=== PATIENT | male | born 1950 | race Caucasian/White ===

== ENCOUNTER → 2017-03-29 | Outpatient (CLI) | payer OTHER ==
[~2017-03-29] MED LIST: ALLOPURINOL PO; ASPI81TA28 PO; ATOR-24 PO; BMX1 PO; CARV25TA2 PO; CHOL20007 PO; CYAN100T6 PO; FAMO20TA11 PO; HYDR-5688 PO; HYDR200T5 PO; LISI-725 PO; METH2.5T PO; ORENCIA INJ; POTA10CA28 PO; SULF500T36 PO; VITAMIN B12 PO
--- NOTE | 2017-03-29 16:39 | DIAGNOSTIC IMAGING REPORT ---
LEFT ANKLE CT CT DOSE: 170.04 mGy.cm HISTORY: LT ANKLE FRACTURE TECHNIQUE: Multiaxial CT images of the left ankle were performed and reformatted in the sagittal and coronal plane without the use of contrast. A dose lowering technique was utilized adhering to the principles of ALARA. COMPARISON: Left ankle 03/29/2017. FINDINGS: Overlying cast. Oblique slightly comminuted fracture within the distal metadiaphysis of the left fibula. This demonstrates up to 6 mm of lateral and 6 mm of anterior displacement. There is also a oblique fracture within the medial malleolus which demonstrates up to 4 mm of medial displacement. This results in mild widening of the ankle mortise. There is also a fracture at the anterolateral aspect of the distal tibia which extends to the articular surface. This demonstrates up to 4 mm of distraction. A few additional small ossific densities adjacent to the posterior malleolus may be due to an old injury. Additional scattered bony fragments seen throughout the ankle due to the fractures. Subcutaneous edema throughout the ankle. There is thickening of the posterior tibialis tendon consistent with a tendinopathy. The Achilles tendon is intact. No dislocation. IMPRESSION: 1. Distal tibial and fibular fractures as described above which are mildly displaced. This results in mild widening of the ankle mortise. 2. Diffuse thickening of the posterior tibialis tendon consistent with a tendinopathy. Electronically signed by: Chung Davis M.D. 03/29/2017 4:37 PM Dictated Date/Time: 03/29/2017 4:31 PM
== END | disposition home or self-care (01) ==
LOC: C.CTS 14:37
PROVIDERS: ATTEND Physical Medicine & Rehabilitation Sports Medicine
DX: S82.852A Displaced trimalleolar fracture of left lower leg, initial encounter for closed fracture (principal); X58.XXXA Exposure to other specified factors, initial encounter; R93.7 Abnormal findings on diagnostic imaging of other parts of musculoskeletal system

== ENCOUNTER → 2017-03-29 | Outpatient (CLI) | payer OTHER | END | disposition home or self-care (01) | LOC: C.RDSM 09:15 | PROVIDERS: ATTEND Physical Medicine & Rehabilitation Sports Medicine | DX: R52 Pain, unspecified (principal) ==

== ENCOUNTER → 2017-04-02 | Outpatient (CLI) | payer OTHER ==
[~2017-04-02] MED LIST changes: -VITAMIN B12 PO
--- NOTE | 2017-04-03 08:45 | DIAGNOSTIC IMAGING REPORT ---
LATERAL CERVICAL SPINE RADIOGRAPHS WITH FLEXION AND EXTENSION CLINICAL HISTORY: PRE OP TESTING FOR ANESTHESIA. COMPARISON STUDY: No previous studies for comparison. FINDINGS: Alignment of the cervical spine is anatomic with the exception of straightening. There is no evidence for C1-C2 instability during flexion or extension. There is moderate anterior osteophytosis with mild multilevel disc space narrowing, most pronounced at the C5-C6 and C6-C7 levels. No fracture or suspicious lesion is evident. IMPRESSION: 1. No evidence of cervical spine instability with flexion or extension. 2. Moderate multilevel degenerative disc disease. Electronically signed by: Roque Thompson M.D. 04/03/2017 8:44 AM Dictated Date/Time: 04/03/2017 8:42 AM
== END | disposition home or self-care (01) ==
LOC: C.RDSM 10:04
PROVIDERS: ATTEND Physician Assistant Medical
DX: Z01.818 Encounter for other preprocedural examination (principal)

== ENCOUNTER 2017-04-09 06:41 | Observation (INO) | payer OTHER ==
--- NOTE | 2017-03-29 15:49 | PAT Medication Instructions ---
Service Date Mar 29, 2017. Current Home Medication List Aspirin (Aspirin Ec), 81 MG PO HS Atorvastatin (Lipitor), 40 MG PO HS Bumetanide (Bumetanide), 2 MG PO QAM Carvedilol (Coreg), 25 MG PO BID Cholecalciferol (Vitamin D3), 5,000 UNITS PO QAM Cyanocobalamin (Vitamin B12 100 Mcg), 200 MCG PO QAM Famotidine (Pepcid), 20 MG PO QAM Hydrocodone/Acetaminophen 5MG/325MG (Sharon 5MG/325MG), 1 TABLET PO Q4H PRN for N Hydroxychloroquine Sulfate (Plaquenil), 200 MG PO BID Lisinopril (Zestril), 20 MG PO QAM Methotrexate (Methotrexate), 12.5 MG PO FRIDAYS Potassium Chloride (Micro-K Ext Rel), 10 MEQ PO QAM Sulfasalazine (Azulfidine), 1,000 MG PO BID [Allopurinol], 1 TAB PO QAM [Orencia], 1 DOSE INJ QMONTHLY Medication Instructions For Your Scheduled Surgery - Continue as directed: [Orencia], 1 DOSE INJ QMONTHLY - Hold the following medications 1 week prior to surgery: Methotrexate (Methotrexate), 12.5 MG PO FRIDAYS - Hold the following medications the morning of surgery: Cholecalciferol (Vitamin D3), 5,000 UNITS PO QAM Lisinopril (Zestril), 20 MG PO QAM Cyanocobalamin (Vitamin B12 100 Mcg), 200 MCG PO QAM Bumetanide (Bumetanide), 2 MG PO QAM Potassium Chloride (Micro-K Ext Rel), 10 MEQ PO QAM - Take the following medications the morning of surgery with a sip of water OTHERWISE NOTHING TO EAT OR DRINK AFTER MIDNIGHT: Carvedilol (Coreg), 25 MG PO BID Famotidine (Pepcid), 20 MG PO QAM [Allopurinol], 1 TAB PO QAM Sulfasalazine (Azulfidine), 1,000 MG PO BID Hydrocodone/Acetaminophen 5MG/325MG (Sharon 5MG/325MG), 1 TABLET PO Q4H PRN Hydroxychloroquine Sulfate (Plaquenil), 200 MG PO BID - Take the following medications as scheduled the night before surgery: Aspirin (Aspirin Ec), 81 MG PO HS Atorvastatin (Lipitor), 40 MG PO HS Carvedilol (Coreg), 25 MG PO BID Sulfasalazine (Azulfidine), 1,000 MG PO BID Hydrocodone/Acetaminophen 5MG/325MG (Sharon 5MG/325MG), 1 TABLET PO Q4H PRN Hydroxychloroquine Sulfate (Plaquenil), 200 MG PO BID If you have any questions please call us at [phone] or [phone] or [phone]
[2017-03-29 17:27] LABS: BLOOD UREA NITROGEN 15 mg/dl (7-18); CALCIUM 9.2 mg/dl (8.5-10.1); CARBON DIOXIDE 33 mmol/L (21-32); GLUCOSE 116 mg/dl (70-99); POTASSIUM 3.5 mmol/L (3.5-5.1); SODIUM 143 mmol/L (136-145)
--- NOTE | 2017-04-02 15:55 | History and Physical ---
History & Physical Date & Time of Service: Apr 02, 2017 at 15:30 Chief Complaint: Left Ankle Trimalleolar Fracture Primary Care Physician: Olivier Celaya M.D. History of Present Illness Source: patient Patient is a pleasant 66-year-old male who status post a fall out of his tree stand approximately 15 feet. This happened on March 26, 2017. He was unable to ambulate due to pain in his left ankle. It is not using assistive group. His back has also been a little bit sore but states he feels this because he is using the crutches. He denies any other injuries. He was transported out of the [facility] and went to a local emergency room where his ankle was reduced. He was then sent to [facility] where further evaluation was done and surgical intervention was recommended. He was hoping to have surgery closer to home and his family physician referred him to see Dr. Hurt. He was seen and evaluated by Dr. Hurt was found to have a left ankle trimalleolar unstable closed fracture. An open reduction internal fixation of his left ankle was recommended. He agreed to proceed. He does have some medial fracture blisters that have delayed surgery slightly. He is scheduled for an open reduction internal fixation of his left ankle fracture with Dr. Hurt on April 09, 2017 at the [facility] in [facility]. Past Medical/Surgical History Past medical history: 1. High blood pressure 2. Coronary artery disease with history of 2 stents 3. History of TIA 4. Cyst on his kidney 5. Hyperthyroidism 6. Rheumatoid arthritis 7. History of gout 8. History of cirrhosis of the liver which seems to have improved with his change in diet 9. Sleep apnea - With use of CPAP 10. GERD 11. Osteoarthritis 12. History of sciatica Past Surgical history: 1. Hernia repair 2 2. Knee surgery 3. Carpal tunnel release 4. Parathyroid surgery Family History Noncontributory Social History Smoking Status: Never Smoker Alcohol Use: none Drug Use: none Marital Status: Housing status: lives with significant other Occupational Status: retired Multi-Drug Resistant Organisms History of MDRO: No Allergies Coded Allergies: NO KNOWN DRUG ALLERGIES (Verified Allergy, Unknown, none, 03/29/17) Home Medications Scheduled Aspirin (Aspirin Ec), 81 MG PO HS Atorvastatin (Lipitor), 40 MG PO HS Bumetanide (Bumetanide), 2 MG PO QAM Carvedilol (Coreg), 25 MG PO BID Cholecalciferol (Vitamin D3), 5,000 UNITS PO QAM Cyanocobalamin (Vitamin B12 100 Mcg), 200 MCG PO QAM Famotidine (Pepcid), 20 MG PO QAM Hydroxychloroquine Sulfate (Plaquenil), 200 MG PO BID Lisinopril (Zestril), 20 MG PO QAM Methotrexate (Methotrexate), 12.5 MG PO FRIDAYS Potassium Chloride (Micro-K Ext Rel), 10 MEQ PO QAM Sulfasalazine (Azulfidine), 1,000 MG PO BID [Allopurinol], 1 TAB PO QAM [Orencia], 1 DOSE INJ QMONTHLY Scheduled PRN Hydrocodone/Acetaminophen 5MG/325MG ([place] 5MG/325MG), 1 TABLET PO Q4H PRN for N Review of Systems Constitutional: No fever, No chills, No sweats, No weight loss, No weakness, No fatigue Eyes: No worsening of vision, No redness ENT: No hearing loss, No nasal symptoms, No sore throat, No tinnitus, No dental problems Respiratory: No cough, No sputum, No wheezing, No shortness of breath Cardiovascular: No chest pain, No edema, No palpitations Abdomen: No pain, No nausea, No vomiting, No diarrhea, No constipation Musculoskeletal: + joint pain (Left ankle), + swelling (Left lower extremity), No calf pain Genitourinary - Male: No hematuria, No dysuria, No urinary frequency, No urinary urgency, No urinary retention, No urinary incontinence Neurologic: No memory loss, No numbness/tingling, No balance problems Psychiatric: No substance abuse Endocrine: No fatigue Hematologic / Lymphatic: No abnormal bleeding/bruising, No clotting problems Integumentary: No rash, No itch Allergic / Immunologic: No frequent infections, No poor healing Physical Exam General Appearance: WD/WN, no apparent distress Head: normocephalic, atraumatic Eyes: normal inspection, PERRL, EOMI ENT: normal ENT inspection, hearing grossly normal, TMs normal, pharynx normal Neck: supple, no adenopathy, thyroid normal, no carotid bruits, trachea midline Respiratory/Chest: chest non-tender, lungs clear, normal breath sounds, no respiratory distress, no accessory muscle use Cardiovascular: regular rate, rhythm, no murmur, normal peripheral pulses Abdomen/GI: normal bowel sounds, non tender, soft Extremities/Musculoskelatal: no calf tenderness, normal capillary refill, + pertinent finding (Exam of his left lower extremity: Fracture blisters along the medial malleolus with erythema and ecchymosis. Edema of his left foot and ankle. Ecchymosis into his left heel and arch mainly on the medial side. Not ecchymosis laterally. Point tenderness at palpation of the medial malleolus and the lateral malleolus. Effusion of his left ankle joint. Nontender over the anterior tibia with palpation. Unstable ankle joint with crepitation with any type of movement. Tolerates full range of motion of his left knee without effusion. Full bilateral hip range of motion without discomfort. No evidence of trauma on his right lower extremity. No evidence of trauma bilateral upper extremities. Nontender of his sternum or rib cage. Nontender with palpation of his lumbar and thoracic and cervical spine. Tolerates gentle range of motion Of his spinewith some achiness with movement.) Neurologic/Psych: no motor/sensory deficits, alert, normal mood/affect, oriented x 3 Skin: normal color, warm/dry, no rash Lymphatic: no adenopathy Diagnostics Laboratory Results 03/29/17 15:50 Test 03/29/17 15:50 Anion Gap 5.0 mmol/L (3-11) Estimated GFR () 79.5 Estimated GFR (Non- 68.6 BUN/Creatinine Ratio 13.7 (10-20) Calcium Level 9.2 mg/dl (8.5-10.1) CBC from March 26, 2017: With blood cell count 8.4, hemoglobin 14.0, hematocrit 41.6, platelets 141, INR 1.2, PTT 30.7, sodium 143, potassium 3.8, chloride 110, CO2 29, BUNs 17, creatinine 0.95, glucose 92, calcium 8.8 Diagnostic Radiology Imaging images from March 26 2017: 1. x-ray of Left tibia and fibula: Distal tibia and fibular fractures 2. Her left ankle 3 views shows distal tibia and fibular fractures involving the medial malleolus extending into the medial aspect of the tibial plafond. There is widening of the syndesmosis. 3. X-ray of his left knee 4 view shows no acute osseous abnormalities 4. X-ray chest frontal view: Probably normal chest however complete PA and lateral study is the preferred method of examining the chest. Shows no focal infiltrate, pneumothorax, pleural effusion, lung nodule, or congestive heart failure. The bones and soft tissues are within normal limits. CT scan of his left ankle from March 29, 2017: Distal tibia and fibular fractures with mild displacement and ankle mortise widening. Normal EKG Impression Assessment and Plan Assessment: Unstable trimalleolar fracture left ankle Plan: Patient will undergo an open reduction internal fixation of his left ankle fracture with Dr. Hurt on April 09, 2017 the [facility]. Risks and complications of surgery explained to the patient and include but are not limited to infection, pain, bleeding, scarring, nerve and blood vessel damage, wound problems, weakness, stiffness, incomplete relief of symptoms, hardware failure, malunion, nonunion, blood clots, embolism, heart attack, Stroke and . All questions were answered and informed consent was obtained. He agrees to proceed with surgery. He will have preadmission testing prior to surgery. He had all the appropriate lab work EKG and chest x- ray prior to surgery done at [facility]. We will obtain preoperative medical clearance from his family physician Dr. Celaya we will also contact his specialist field engineer Dr. Meyer regarding his rheumatology medications. We did receive a letter from her that it would be appropriate for him to stop his sulfasalazine, methotrexate and Plaquenil one week prior to surgery. His Orencia infusion is being held as well. He will be nonweightbearing on his left lower extremity for 6-12 weeks after surgery. He will need physical therapy after surgery once his skin is okay. He will follow up after surgery with Dr. Hurt 10-14 days for suture removal. He was given a prescription for hydrocodone 5 per 325 mg to take as needed for pain. Skin a prescription for a knee walker. He will be kept in observation for an overnight stay for pain management and post operative physical therapy. All questions were answered, he knows to call with any further questions or concerns.
[2017-04-05 10:09] VITALS: BMI 38.0
[~2017-04-09] VITALS: Ht 177.8 cm; Wt 121.1 kg
[2017-04-09] VITALS (10 sets, daily range): BP systolic 129–165; BP diastolic 73–88; PULSE 51–80; TEMP 36.3–36.8; O2SAT 95–99; Ht 177.8 cm; Wt 121.1 kg
[~2017-04-09 06:41] MED LIST changes: +BUPIVACAINE 0.25% 30 ML VIAL ONE; +CEFAZOLIN SOD 2000MG/15 ML IV PUSH IV SCH; +LACTATED RINGER'S 1000ML 1,000 ML IV SCH; +ROPIVACAINE 0.5% 5 MG/ML 30 ML VIAL ONE; +SODIUM CHLORIDE 0.9% 1000ML 1,000 ML IV SCH; +VANCOMYCIN IV 2,000 MG in SODIUM CHLORIDE 0.9% 500ML 500 ML IV SCH
[2017-04-09] MEDS ORDERED: FENTANYL CITRATE INJ 50 MCG/1 ML 2 ML VIAL IV PRN (08:00)
[2017-04-09] MEDS ORDERED: EpHEDrine SULFATE INJ 50 MG/ML AMP IV PRN (08:00)
[2017-04-09] MEDS ORDERED: PROMETHAZINE HCL INJ 12.5 MG in SODIUM CHLORIDE 0.9% 50ML 50 ML IV PRN (08:00)
[2017-04-09] MEDS ORDERED: ONDANSETRON INJ 2 MG/ML 2 ML VIAL IV PRN ×2 (08:00→14:15)
[2017-04-09] MEDS ORDERED: HYDROmorphone INJ 1 MG/ML SYR IV PRN (08:00)
[2017-04-09] MEDS ORDERED: ATROPINE SULFATE 0.1 MG/ML 5ML SYR IV PRN (08:00)
[2017-04-09] MEDS ORDERED: MIDAZOLAM HCL 1 MG/ML 2ML VIAL ONE ×2 (09:39→10:07)
[2017-04-09] MEDS ORDERED: FENTANYL CITRATE INJ 50 MCG/1 ML 2 ML VIAL ONE ×2 (09:39→10:07)
--- NOTE | 2017-04-09 09:57 | History & Physical Bridge Note ---
H&P Re-Evaluation Bridge Note: I have examined the patient, reviewed the History & Physical and in the interval since the performance of the History & Physical I have noted the following changes of clinical significance: No changes noted
[2017-04-09] MEDS ORDERED: POVIDONE-IODINE OP SOLN 30 ML BTL ONE ×2 (10:29→13:27)
[2017-04-09] MEDS ORDERED: LIDOCAINE/EPINEPHRINE 1% 20 ML VIAL ONE (10:30)
[2017-04-09] MEDS ORDERED: BUPIVACAINE/EPINEPHRINE 0.5% MPF 1:200,000 30 ML VIAL ONE (10:30)
[2017-04-09] MEDS ORDERED: GLYCOPYRROLATE INJ 0.2 MG/ML VIAL ONE (12:19)
[2017-04-09] MEDS ORDERED: PROPOFOL IV EMULSION 10 MG/ML 20 ML VIAL IV ONE (12:19)
[2017-04-09] MEDS ORDERED: NEOSTIGMINE METHYLSULFATE 5 MG/5 ML SYR ONE (12:19)
[2017-04-09] MEDS ORDERED: LIDOCAINE HCL 2% 2 ML VIAL (20MG/ML) ONE (12:19)
[2017-04-09] MEDS ORDERED: ROCURONIUM BROMIDE 10 MG/ML 5 ML VIAL IV ONE (13:35)
--- NOTE | 2017-04-09 14:05 | [facility] Post Operative Brief Note ---
Immediate Operative Summary Operative Date Apr 09, 2017. Pre-Operative Diagnosis unstable bimalleolar fracture left ankle, tilleaux fx Post-Operative Diagnosis saame Procedure(s) Performed Left Ankle Open Reduction Internal Fixation Surgeon Dr. Sanchez Hurt Chief Of Service Surgeon(s) Lani Zapata PA-C Estimated Blood Loss 25ML Findings comminuted fibula fx, med malleolus fx, tilleaux fx Specimens none per surgeon Dr. Sanchez Hurt Drains o Anesthesia general w block Complication(s) None Disposition Recovery Room / PACU
[2017-04-09] MEDS ORDERED: SOD PHOSPHATE/SOD BIPHOSPHATE ENEMA 132 ML BTL PR PRN (14:15)
[2017-04-09] MEDS ORDERED: MAGNESIUM HYDROXIDE SUSP 30 ML UDC PO PRN (14:15)
[2017-04-09] MEDS ORDERED: TRAMADOL HCL 50 MG TAB PO PRN (14:15)
[2017-04-09] MEDS ORDERED: MoRPHine SULFATE 2 MG/ML CARP IV PRN (14:15)
[2017-04-09] MEDS ORDERED: BISACODYL 10 MG SUPP PR PRN (14:15)
--- NOTE | 2017-04-09 14:37 | [facility] Operative Report ---
Operative Report Operative Date Apr 09, 2017. Pre-Operative Diagnosis unstable bimalleolar fracture left ankle, tilleaux fx Post-Operative Diagnosis saame Procedure(s) Performed Left Ankle Open Reduction Internal Fixation Surgeon Dr. 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 His surgery has been delayed due to skin/fracture blisters medially and swelling control. He's been nonweight bearing. X-rays were taken and he was found to have a left ankle fracture/dislocation. Surgical intervention was recommended and he agreed to proceed with surgery. Risks/complications discussed, informed consent obtained. Description of Procedure Patient was taken to the operating room, given 3gm IV Ancef for surgical prophylaxis. He was placed under general anesthesia. Time out performed, prepped and draped in routine sterile fashion. I was present during the entire case, please see Dr. Hurt's operative report for further detail. Patient was awakened and taken to the recovery room in stable condition. I attest to the content of the Intraoperative Record and any orders documented therein. Any exceptions are noted below.
--- NOTE | 2017-04-09 14:38 | DIAGNOSTIC IMAGING REPORT ---
L ANKLE MIN 3 VIEWS ROUTINE CLINICAL HISTORY: 66 years-old Male presenting with LT ORIF. TECHNIQUE: 5 fluoroscopic spot image(s) obtained as part of an intraoperative procedure. COMPARISON: 03/29/2017. FINDINGS/IMPRESSION: There has been interval 2 cortical compression screw fixation of the medial malleolus fracture, placement of a single transsyndesmotic screw, and a cortical compression plate and screw fixation of the obliquely oriented fibular fracture at the level of the syndesmosis. The ankle mortise is now intact. No significant residual widening of the distal tibiofibular articulation. These findings are consistent with internal fixation of the Perla B stage IV supination exorotation injury. Please see surgical report for further details. Fluoroscopy dosage (mGy): 1.16. Fluoroscopy time: 50.4 seconds. Number of fluoroscopic spot images: 5. Electronically signed by: Sanchez Parada M.D. 04/09/2017 2:37 PM Dictated Date/Time: 04/09/2017 2:34 PM
[2017-04-09] MEDS ORDERED: IV FLUIDS COMPLETED PRN (14:45)
--- NOTE | 2017-04-09 14:51 | Anesthesiology Progress Note ---
Anesthesia Post Op Note Date & Time Apr 09, 2017 at 14:51 Vital Signs Pain Intensity: 0 Vital Signs Past 12 Hours Date Time Temp Pulse Resp B/P (MAP) Pulse Ox O2 Delivery O2 Flow Rate FiO2 04/09/17 14:45 51 16 134/74 96 Nasal Cannula 2 04/09/17 14:35 54 16 126/70 97 Oxymask 3 04/09/17 14:25 56 16 124/67 97 Oxymask 5 04/09/17 14:15 53 16 130/74 99 Oxymask 10 04/09/17 14:09 36.1 67 12 128/75 97 Oxymask 10 04/09/17 08:01 130/88 (102) 99 Room Air 04/09/17 07:48 36.7 72 20 Room Air Notes Mental Status: alert / awake / arousable, participated in evaluation Pt Amnestic to Procedure: Yes Nausea / Vomiting: adequately controlled Pain: adequately controlled Airway Patency, RR, SpO2: stable & adequate BP & HR: stable & adequate Hydration State: stable & adequate Anesthetic Complications: no major complications apparent
--- NOTE | 2017-04-09 15:37 | OPERATIVE REPORT ---
DATE OF OPERATION: 04/09/2017 PREOPERATIVE DIAGNOSIS: Bimalleolar fracture of left ankle with a Tillaux fracture. POSTOPERATIVE DIAGNOSIS: Same. PROCEDURE PERFORMED: Open reduction and internal fixation of bimalleolar ankle fracture and Tillaux fracture of left ankle. SURGEON: Dr. Sanchez Hurt. SECURITY PROFESSIONALS: Lani Zapata PA-C. ANESTHESIA: General with nerve block. INDICATIONS OF PROCEDURE: The patient is a 66-year-old male who is 2 weeks status post a fall out of a tree stand, resulting in a fracture dislocation of left ankle. He also has rheumatoid arthritis. Education Managers advised his rheumatologic medications be discontinued 1 week ahead of time, which has been done. Due to the nature of the injury and significant swelling, time was given for the ankle to calm down. He did have medial blistering, which resulted in a small excoriation, 1 cm in size on the medial aspect of the ankle. There was no evidence of cellulitis. This was an erosion that went down into the superficial dermis. He did not have an open fracture. CT scan shows a comminuted high fibular fracture, a transverse medial fracture and a Tillaux fracture avulsion of distal anterolateral tibia. Treatment options, risks, and benefits were discussed and he elected to proceed with operative intervention. He has been evaluated by his primary care physician and anesthesia. DESCRIPTION OF PROCEDURE: Informed consent was obtained. The patient identified as Jalen Wall. He identified the operative site as the left ankle. I marked it with my initials. A preop surgical timeout was performed. A preop dose of IV antibiotics was given. He received both vancomycin and Ancef. A preoperative surgical timeout was performed. He was positioned supine with a bump under the left hip and a tourniquet on the left thigh. The splint was removed. The skin was inspected and the findings were as aforementioned. Wrinkles were intact. There was minimal bruising. No additional blistering. The ankle was unstable. Swelling was minimal. The leg was clipped, prepped and then prescrubbed followed by routine prep and drape. DVT prophylaxis intraoperatively with foot pump and postoperatively, early mobility, mechanical devices and Lovenox. Fluoroscopic guidance was utilized throughout the procedure. The limb was exsanguinated with the Esmarch and tourniquet inflated to 250 mmHg and later to 275 mmHg. A lateral incision was made approximately 15-18 cm in length. Blunt dissection was performed through the subcutaneous tissues. The area of the fracture site was identified and the soft tissues were left intact there. Otherwise, careful subperiosteal exposure of the lateral fibula was performed proximally and distally. I then dissected subcutaneously anteriorly at the level of the Tillaux fracture and identified this fracture. The superficial peroneal nerve was not identified in the dissection, but I was careful always watch out for it. The Tillaux fracture was identified. The periosteal attachments were removed from it. The fracture was opened, cleaned of soft tissue, irrigated and cleaned of hematoma. Distally, there was some comminution of the Tillaux fracture and some small fragments of what appeared to be bone cartilage, mm in size which were excised. Additionally, there was an area about 0.5 cm in size on the lateral shoulder of the talus, where there was damage to the cartilage and small flaps in this area were removed. Nothing appeared to be down to bone. Ankle joint was irrigated. I provisionally pinned the Tillaux fracture in place. I then took a long distal fibular locking plate, split it subperiosteally underneath at the level of the fracture. The plate was oriented. A clamp was applied proximally. The shape of the plate appeared to be appropriate for the bone. It was provisionally pinned distally with couple of K wires and then fluoroscopic images were obtained, assessing alignment and positioning. I then took the tenaculum, grasped the distal fibula and distracted the ankle and the distal fibula to bring this out to length. This appeared to work nicely. I then went ahead and affixed to the distal fibula with multiple small locking screws. I then removed the pin from the Tillaux fracture, did the aforementioned maneuver, gaining length on the fibula and fixed this proximally with a whirlybird. This resulted in voodoo of fibular length and reduction of the fracture. The plate was provisionally reduced down to the bone and alignment appeared to be intact. I then additionally went ahead and reduced the Tillaux fracture in an anatomic fashion and pinned it with 2 K-wires. I then placed 3 bicortical locking screws proximally and several additional locking screws distally to fix the fibula. I then placed a 4.0 cancellous screw with a washer to fix the Tillaux fracture. AP, lateral and mortise views were obtained. The fibula was out to length. The hardware was in good position. The ankle mortise and Tillaux fracture were reduced. Attention was turned medially. The excoriation in the skin was posterior. I was able to make a slightly more anterior incision and avoid it. This 6-8 cm incision was carried sharply through the skin and blunt dissection down to subcutaneous tissues. It was noted that the patient appeared to have some venous varicosities both medially and laterally, which required extensive cauterization. The saphenous neurovascular structures were protected in the anterior flap. There was significant soft tissue located within the fracture, which required extrication. The fracture site was opened and small fragments of bone noted posteriorly on the CT scan were removed. The posterior tib tendon appeared to be intact and the medial malleolar fracture was not notably comminuted. After cleaning out the fracture site, it was anatomically reduced and pinned in place with 2 guidewires with 4.0 cannulated screws. Multiplanar fluoroscopy confirmed reduction and positioning of the hardware and these were overreamed and screws of 46 mm in length were inserted directly down to bone after dissecting around the pins. Images were repeated. The reduction was good. The mortise was intact and the hardware was in good position. I then stressed the syndesmosis and found that there was no need for syndesmotic screws and no syndesmosis laxity. The tourniquet let down after 2 hours of inflation. Meticulous hemostasis was performed with electrocautery and pressure. Betadine lavage was performed followed by sterile saline lavage. On the medial side, the periosteum was substantially disrupted and there was no ability to repair. The skin was then closed with 3-0 Vicryl and nixon on the skin. On the lateral side, the periosteum was covered over the plate with 0 Vicryl. The skin was closed with 3-0 Vicryl and nixon. Leg was cleaned with wet and dry sponges. A soft sterile dressing was applied. Xeroform, 4 x 4's, ABD, cast padding and a posterior splint with the ankle in neutral position. The patient was then awakened from anesthesia without difficulty and taken to recovery room in stable condition. There were no specimens or complications. Counts were correct at the end of the case. Blood loss was approximately 25 mL. At the conclusion of the operation, I spoke to patient's family and informed them of my findings. Postoperative instructions were given. We will start Lovenox in the morning. He will be immobilized in a splint. His rheumatologic medicines will be held until the wounds were healed. Medicine will be consulted. He is nonweightbearing for at least 4 weeks. Synthes 4.0 cannulated screws and a Synthes distal fibular locking plate were utilized. I attest to the content of the Intraoperative Record and any orders documented therein. Any exceptions are noted below. KELLEN
--- NOTE | 2017-04-09 16:00 | NUR ---
OBS/The patient has demonstrated progress toward goals and readiness for discharge as demonstrated by:Patient alert X4. Lungs clear on 2L O2 NC. Triflow to 2500. IV site left wrist with LR running at 100ml/hr. Acewrap dressing intact to LLE. Patient states left foot is numb. All other extremities with normal sensation. Hypo lower quadrant bowel sounds, active upper quadrant bowel sounds, patient denies passing gas. Pulses palpable, brisk cap refill. Scattered non-raised red rash noted to left chest, patient denies itchiness. present at bedside, patient intends to be discharged to home and designated his as his caregiver.
--- NOTE | 2017-04-09 16:10 | Medical Consult ---
Consultation Date of Consultation: Apr 09, 2017. Attending Physician: Sanchez Hurt M.D. Reason for Consultation: Medical Management History of Present Illness This is a 66 yo M with PMHx of CAD s/p 2 stents, HTN, Hx of TIA, hyperthyroidism s/p parathyroidectomy, rheumatoid arthritis, gout, liver cirrhosis, sleep apnea, GERD and osteoarthritis. The patient present for elective left trimalleolar fracture by Dr. Hurt after suffering from a 15 foot fall out of his tree stand on Mar 26, 2016 when attempting to get down. He denies any acute pain in the left ankle at this time, and reports still being very numb. He notes his right upper lip feels to be swollen. His is present at bedside and notes this was not there ~ 30 minutes ago. He also has a slightly red rash over the chest wall which nursing thinks may be slightly worse since coming to the floor from pacu. He denies any other acute complaints. He has not decided on rehab planning at this point. Past Medical/Surgical History Medical Problems: (1) CAD (coronary artery disease) (2) GERD (gastroesophageal reflux disease) (3) Gout (4) HTN (hypertension) (5) Hyperthyroidism (6) Liver cirrhosis (7) Osteoarthritis (8) Rheumatoid arthritis (9) Sleep apnea (10) Trimalleolar fracture of ankle, closed Surgical Problems: (1) H/O knee surgery (2) History of carpal tunnel surgery (3) Hx of parathyroidectomy (4) S/P hernia repair Social History Smoking Status: Former Smoker Alcohol Use: none Drug Use: none Marital Status: Housing Status: lives with family Occupation Status: retired Allergies Coded Allergies: NO KNOWN DRUG ALLERGIES (Verified Allergy, Unknown, none, 04/09/17) Current Inpatient Medications Current Inpatient Medications Medications (Trade) Dose Ordered Sig/Shaquille Route Start Time Stop Time Status Last Admin Dose Admin Cefazolin Sodium (Ancef 2000mg Iv Push) 2,000 mg PREOP IV 04/09/17 06:00 04/09/17 18:00 04/09/17 10:42 2,000 MG Sodium Chloride 1,000 ml @ 0 mls/hr Q0M IV 04/09/17 06:00 05/09/17 05:59 Lactated Ringer's 1,000 ml @ 15 mls/hr Q24H IV 04/09/17 06:00 04/10/17 05:59 04/09/17 07:37 15 MLS/HR Vancomycin HCl 2000 mg/Sodium Chloride 540 ml @ 200 mls/hr PREOP IV 04/09/17 06:00 04/10/17 05:59 04/09/17 07:37 200 MLS/HR Potassium Chloride/Dextrose/ Sod Cl 1,000 ml @ 100 mls/hr Q10H IV 04/09/17 14:09 05/09/17 14:08 UNV Oxycodone HCl (Roxicodone Immediate Rel Tab) 1-2 TABS FOR PAIN 1 TABLET ... Q4H PRN PO 04/09/17 14:15 04/23/17 14:14 Morphine Sulfate (MoRPHine SULFATE INJ) If PO analgesic is order... Q2H PRN IV 04/09/17 14:15 04/23/17 14:14 Acetaminophen (Tylenol Tab) 1,000 mg Q8H PO 04/09/17 14:15 05/09/17 14:14 UNV Magnesium Hydroxide (Milk Of Magnesia Susp) 30 ml Q6H PRN PO 04/09/17 14:15 05/09/17 14:14 Bisacodyl (Dulcolax Supp) 10 mg DAILY PRN NJ 04/09/17 14:15 05/09/17 14:14 Sodium Biphosphate/ Sodium Phosphate (Fleet Enema) 132 ml DAILY PRN [place] 04/09/17 14:15 05/09/17 14:14 Docusate Sodium (coLACE CAP) 100 mg BID PO 04/09/17 21:00 05/09/17 20:59 UNV Multivitamins (Multivitamin Tab) 1 tab QAM PO 04/10/17 09:00 05/10/17 08:59 UNV Ondansetron HCl (Zofran Inj) 4 mg Q6H PRN IV 04/09/17 14:15 05/09/17 14:14 Cefazolin Sodium 3000 mg/Dextrose 65 ml @ 100 mls/hr Q8H IV 04/09/17 14:15 04/09/17 22:53 UNV Enoxaparin Sodium (Lovenox Inj) 40 mg Q24H SQ 04/10/17 09:00 04/24/17 08:59 UNV Aspirin (Ecotrin Tab) 81 mg HS PO 04/09/17 21:00 05/09/17 20:59 UNV Atorvastatin Calcium (Lipitor Tab) 40 mg HS PO 04/09/17 21:00 05/09/17 20:59 UNV Bumetanide (Bumex Tab) 2 mg QAM PO 04/10/17 09:00 05/10/17 08:59 UNV Carvedilol (Coreg Tab) 25 mg BID PO 04/09/17 21:00 05/09/17 20:59 UNV Cyanocobalamin (Vitamin B-12 Tab) 200 mcg QAM PO 04/10/17 09:00 05/10/17 08:59 UNV Famotidine (Pepcid Tab) 20 mg QAM PO 04/10/17 09:00 05/10/17 08:59 UNV Lisinopril (Zestril Tab) 10 mg QAM PO 04/10/17 09:00 05/10/17 08:59 UNV Potassium Chloride (Klor-Con M10) 10 meq QAM PO 04/10/17 09:00 05/10/17 08:59 UNV Non-Formulary Medication (Cholecalciferol (Vitamin D3)) 5,000 units QAM PO 04/10/17 09:00 05/10/17 08:59 UNV Tramadol HCl (Ultram Tab) 50MG FOR 1-5 100MG FOR 6-10 Q4H PRN PO 04/09/17 14:15 05/09/17 14:14 Miscellaneous (Iv Fluids Completed) 1 ea PRN PRN N/A 04/09/17 14:45 04/09/18 14:44 Review of Systems Constitutional: No fever, No chills, No sweats, No weight loss, No fatigue Eyes: No redness, No diplopia ENT: No sore throat, No trouble swallowing Respiratory: No shortness of breath, No dyspnea on exertion, No dyspnea at rest , No hemoptysis Cardiovascular: No chest pain, No edema, No claudication Abdomen: No pain, No nausea, No vomiting, No diarrhea, No constipation Musculoskeletal: No joint pain, No swelling, No calf pain Genitourinary - Male: No hematuria Neurologic: No numbness/tingling, No balance problems Endocrine: No fatigue Integumentary: + problem reported, No rash, No itch Physical Exam Date Time Temp Pulse Resp B/P (MAP) Pulse Ox O2 Delivery O2 Flow Rate FiO2 04/09/17 15:30 36.4 54 16 165/88 (113) 96 Nasal Cannula 2.0 04/09/17 14:55 36.5 52 16 135/74 96 Nasal Cannula 2 04/09/17 14:45 51 16 134/74 96 Nasal Cannula 2 04/09/17 14:35 54 16 126/70 97 Oxymask 3 04/09/17 14:25 56 16 124/67 97 Oxymask 5 04/09/17 14:15 53 16 130/74 99 Oxymask 10 04/09/17 14:09 36.1 67 12 128/75 97 Oxymask 10 04/09/17 08:01 130/88 (102) 99 Room Air 04/09/17 07:48 36.7 72 20 Room Air General Appearance: WD/WN, no apparent distress Head: normocephalic, atraumatic Eyes: PERRL, EOMI ENT: hearing grossly normal, pharynx normal, + pertinent finding (MMM, + R upper lip swelling present, minimal surrounding erythema, tongue not swollen, no difficulty with swallowing, speech is clear) Neck: supple, no JVD Respiratory/Chest: lungs clear, no respiratory distress, no accessory muscle use, + pertinent finding (on 2 L via NC) Cardiovascular: regular rate, rhythm, normal peripheral pulses, + systolic murmur (grade III/) Abdomen/GI: normal bowel sounds, non tender, soft Back: normal inspection Extremities/Musculoskelatal: normal inspection, no pedal edema, + pertinent finding (Left leg wrapped in LAZ, diminished sensation to ) Neurologic/Psych: no motor/sensory deficits, alert, oriented x 3 Skin: normal color, + pertinent finding (+ rash over anterior chest wall, does not appear to have rash anywhere else over body) Laboratory Results Last 24 Hours Test 04/09/17 14:21 Bedside Glucose 87 mg/dl Assessment & Plan (1) Trimalleolar fracture of ankle, closed Status: Acute Assessment & Plan: - S/p ORIF of L trimalleolar fx by Dr. Hurt on 04/09/17 - Pain management, bowel regimen and DVT ppx per primary team - PT/OT on board Swelling R upper lip and anterior chest rash noted - Ordered Benadryl 50 mg now, and Q4H prn for swelling/itch - tongue not involved, no issues with dysphagia or swallowing function. Nursing to page with updates as needed. - Discussed with Lani Garcia PA-C with ortho - Unsure etiology at this point: received vanc this morning around 8 am and Ancef 3 g which infused for few hours starting at 11am. - Pt has no known allergies and confirms (2) Osteoarthritis Status: Chronic (3) CAD (coronary artery disease) Status: Chronic Assessment & Plan: - S/p 2 stents [address] Miles - Continue on coreg 25 mg BID, asa 81 mg daily, and atorvastatin 40 mg QPM (4) HTN (hypertension) (5) Liver cirrhosis Status: Chronic (6) Hyperthyroidism Status: Chronic Assessment & Plan: s/p parathyroidectomy (7) GERD (gastroesophageal reflux disease) Status: Chronic Assessment & Plan: - Cont PPI (8) Sleep apnea Assessment & Plan: - Can use home cpap machine - at bedside (9) Rheumatoid arthritis Assessment & Plan: - Stable - Holding plaquenil, methotrexate and sulfazalazine at this time. Pt also gets monthly injections of Orenci which was last administered at the end of January. The patient is scheduled to resume treatment at the end of March. - Can not be on these agents within 10 days of antibiotics. Problem Qualifiers (1) Trimalleolar fracture of ankle, closed: Laterality: left (2) CAD (coronary artery disease): Coronary Disease-Associated Artery/Lesion type: [place] artery [place] vs. transplanted heart: [place] heart
[2017-04-09] MEDS: D5W AND 1/2NSS + 20MEQ KCL 1,000 ML IV SCH (16:32)
--- NOTE | 2017-04-09 17:10 | Orthopedic Progress Note ---
Orthopedic Progress Note Date of Service Apr 09, 2017. Subjective Post OP Day: zero Reports: feeling well, complaints (swollen, upper lip right side, came suddenly in last 30 minutes. Denies trouble breathing, swallowing or mouth swelling.), Denies: chest pain, SOB, nausea / vomiting, light headedness, calf pain Additional Notes: No pain, has peripheral nerve block that's still functioning. Objective calves soft nontender, N/V intact (deferred due to peripheral nerve block. Able to wiggle toes, but decreased sensation), splint C/D/I, capillary refill less than 2 sec., dressing C/D/I, A&O x3, toes mobile right side of upper lip edema, no tongue edema, no slurred speech. Macular papular red rash on anterior chest, no where else on body. Date Time Temp Pulse Resp B/P (MAP) Pulse Ox O2 Delivery O2 Flow Rate FiO2 04/09/17 17:00 36.6 66 16 155/87 (109) 98 Room Air 04/09/17 16:02 36.3 51 16 153/86 (108) 95 Nasal Cannula 2.0 04/09/17 15:30 36.4 54 16 165/88 (113) 96 Nasal Cannula 2.0 04/09/17 14:55 36.5 52 16 135/74 96 Nasal Cannula 2 04/09/17 14:45 51 16 134/74 96 Nasal Cannula 2 04/09/17 14:35 54 16 126/70 97 Oxymask 3 04/09/17 14:25 56 16 124/67 97 Oxymask 5 04/09/17 14:15 53 16 130/74 99 Oxymask 10 04/09/17 14:09 36.1 67 12 128/75 97 Oxymask 10 04/09/17 08:01 130/88 (102) 99 Room Air 04/09/17 07:48 36.7 72 20 Room Air Assessment & Plan Assessment: Assessment: s/p ORIF left ankle fracture, facial swelling, rash on chest Plan: May be OOB, NWB LLE Keep splint on left leg at all times. Ice and elevate left foot as needed for pain/swelling. Use walker or knee scooter when out of bed. Wiggle toes frequently. Benadryl given by medicine for facial swelling/rash. Regular diet as tolerated. PT in AM SS for discharge planning. Plan for discharge to home in the AM if swelling resolved. Medicine consulted for medical management, appreciate input/assistance with facial swelling. Will discuss findings with Dr. Hurt. (1) Trimalleolar fracture of ankle, closed Acute (2) Osteoarthritis Chronic (3) CAD (coronary artery disease) Chronic (4) HTN (hypertension) (5) Liver cirrhosis Chronic (6) Hyperthyroidism Chronic (7) GERD (gastroesophageal reflux disease) Chronic (8) Sleep apnea (9) Rheumatoid arthritis Discharge Planning Discharge Planning: home (04/10/17)
[2017-04-09] MEDS: ACETAMINOPHEN 500 MG TAB PO SCH (18:00)
[2017-04-09] MEDS: CEFAZOLIN IV 3,000 MG in SYRINGE 0 ML IV SCH (18:55)
--- NOTE | 2017-04-09 20:00 | NUR ---
OBS: Patient is now on room air. Voiding in urinal. No other changes from last note. Addendum: 04/09/17 at 2135 by Lottie Poole RN D5 0.45 NS with 20 KCl running at 100 ml/hr.
[2017-04-09] MEDS: CARVEDILOL 25 MG TAB PO SCH (20:57)
[2017-04-09] MEDS: DOCUSATE SODIUM 100 MG CAP PO SCH (20:57)
[2017-04-09] MEDS ORDERED: ASPIRIN 81 MG ECTAB PO SCH (21:00)
[2017-04-09] MEDS ORDERED: ATORVASTATIN 40 MG TAB PO SCH (21:00)
--- NOTE | 2017-04-10 | NUR ---
OBS Note: A/Ox4. Pain controlled with medication. IVF running per MD order. Pt has not been OOB yet. Pt currently resting in bed. Call combs within reach.
[2017-04-10 00:03] VITALS: BP 138/72; PULSE 76; TEMP 37.1; O2SAT 97
[2017-04-10] MEDS: ACETAMINOPHEN 500 MG TAB PO SCH ×2 (01:42→10:06)
[2017-04-10] MEDS: CEFAZOLIN IV 3,000 MG in SYRINGE 0 ML IV SCH (01:42)
[2017-04-10] MEDS: D5W AND 1/2NSS + 20MEQ KCL 1,000 ML IV SCH (01:43)
[2017-04-10] MEDS: OXYCODONE HCL IR 5 MG TAB (IMMEDIATE RELEASE) PO PRN ×2 (01:43→07:33)
[2017-04-10 03:29] VITALS: BP 138/77; PULSE 77; TEMP 37.2; O2SAT 96
--- NOTE | 2017-04-10 04:00 | NUR ---
OBS Note: No change in assessment. IVF running per MD order. Pt resting in bed. Call cobms within reach.
[2017-04-10 06:09] LABS: INR 1.1 (0.9-1.1); PTT PATIENT 29.6 SECONDS (21.0-31.0)
[2017-04-10 06:14] LABS: HEMATOCRIT 38.4 % (42-52); HEMOGLOBIN 12.8 g/dL (14.0-18.0); MEAN CELL VOLUME 96.7 fL (80-100); MEAN CORPUSCULAR HEMOGLOBIN 32.2 pg (25-34); MEAN CORPUSCULAR HGB CONC 33.3 g/dl (32-36); MEAN PLATELET VOLUME 10.2 fL (7.4-10.4); PLATELET COUNT 226 K/uL (130-400); RED CELL DISTRIBUTION WIDTH CV 14.4 % (11.5-14.5); RED CELL DISTRIBUTION WIDTH SD 50.4 fL (36.4-46.3); WHITE BLOOD COUNT 9.88 K/uL (4.8-10.8)
[2017-04-10 07:54] VITALS: BP 132/75; PULSE 78; TEMP 37.1; O2SAT 93
[2017-04-10 08:00] VITALS: O2SAT 93
[2017-04-10] MEDS ORDERED: INFLUENZA ADMINISTRATION CHARGE ONE (08:00)
[2017-04-10] MEDS ORDERED: INFLUENZA VIRUS QUAD VACCINE 0.5 ML SYR IM. ONE (08:00)
[2017-04-10] MEDS: DOCUSATE SODIUM 100 MG CAP PO SCH (08:53)
[2017-04-10] MEDS: CARVEDILOL 25 MG TAB PO SCH (08:53)
--- NOTE | 2017-04-10 08:56 | Orthopedic Progress Note ---
Orthopedic Progress Note Date of Service Apr 10, 2017. Subjective Post OP Day: 1 Reports: feeling well, complaints (states developed a lot of pain last evening and through the night. Much improved this morning after pain medication.), pain controlled w PO medications, Denies: chest pain, SOB, nausea / vomiting, light headedness, calf pain Additional Notes: He has not been out of bed. States that the splint and dressings feel little tight. He's been icing and elevating while in bed. Denies any numbness or tingling. Objective calves soft nontender, splint C/D/I, capillary refill less than 2 sec., dressing C/D/I, A&O x3, toes mobile Left lower extremity elevated on pillows with ice packs. I remove the Bret bandages and split the webril up the middle to relieve the "tightness" that he was feeling. He had immediate relief and Bret bandages were reapplied. He states that it was more comfortable after that. Dorsalis pedis pulses 1+. Distal sensation is normal. He is able to tolerate range of motion of his toes. Visible skin visualized while splitting the webril was normal. No evidence of fracture blisters visualized. Date Time Temp Pulse Resp B/P (MAP) Pulse Ox O2 Delivery O2 Flow Rate FiO2 04/10/17 07:54 37.1 78 14 132/75 (94) 93 Room Air 04/10/17 07:30 Room Air 04/10/17 03:29 37.2 77 16 138/77 (97) 96 Room Air 04/10/17 00:17 Room Air 04/10/17 00:03 37.1 76 16 138/72 (94) 97 Room Air 04/09/17 20:55 80 160/88 (112) 04/09/17 20:32 36.8 76 16 129/73 (91) 98 Room Air 04/09/17 18:01 36.6 79 14 147/83 (104) 98 Nasal Cannula 2.0 04/09/17 17:00 36.6 66 16 155/87 (109) 98 Room Air 04/09/17 16:02 36.3 51 16 153/86 (108) 95 Nasal Cannula 2.0 04/09/17 15:30 36.4 54 16 165/88 (113) 96 Nasal Cannula 2.0 04/09/17 15:10 99 Nasal Cannula 2.0 04/09/17 15:10 99 Nasal Cannula 2.0 04/09/17 15:00 36.8 54 14 148/73 (98) 99 Nasal Cannula 2.0 04/09/17 14:55 36.5 52 16 135/74 96 Nasal Cannula 2 04/09/17 14:45 51 16 134/74 96 Nasal Cannula 2 04/09/17 14:35 54 16 126/70 97 Oxymask 3 04/09/17 14:25 56 16 124/67 97 Oxymask 5 04/09/17 14:15 53 16 130/74 99 Oxymask 10 04/09/17 14:09 36.1 67 12 128/75 97 Oxymask 10 Laboratory Results 24 Hours: Test 04/10/17 05:23 Hematocrit 38.4 % Hemoglobin 12.8 g/dL Prothromb Time International Ratio 1.1 Prothrombin Time 11.2 SECONDS Assessment & Plan Assessment: Assessment: POD 1 - ORIF left ankle fracture facial swelling, rash on chest - resolved Plan: May be OOB, NWB LLE Keep splint on left leg at all times. Ice and elevate left foot as needed for pain/swelling. Use walker or knee scooter when out of bed. Wiggle toes frequently. Facial swelling and chest rash completely resolved this morning. States that he is feeling back to normal. Tolerating regular diet Lovenox 40 mg subcutaneous daily 14 days postoperatively for DVT prophylaxis. To start this morning. Physical therapy to start this morning. Plan for discharge to home today after physical therapy. Medicine consulted for medical management, appreciate input/assistance with facial swelling. He requested shower chair for home use-a prescription was written and placed in his chart. Will discuss findings with Dr. Hurt. Discharge to home later today. (1) Trimalleolar fracture of ankle, closed Acute (2) Osteoarthritis Chronic (3) CAD (coronary artery disease) Chronic (4) HTN (hypertension) (5) Liver cirrhosis Chronic (6) Hyperthyroidism Chronic (7) GERD (gastroesophageal reflux disease) Chronic (8) Sleep apnea (9) Rheumatoid arthritis Discharge Planning Discharge Planning: home (04/10/17) Pain Management: Ultram, PO Tylenol, Oxy IR DVT Prophylaxis: TEDs, Lovenox (40 mg daily x 14 days)
[2017-04-10] MEDS ORDERED: MULT-890 PO (08:59)
[2017-04-10] MEDS ORDERED: RXC5 PO (08:59)
[2017-04-10] MEDS ORDERED: LVNIS40 SQ (08:59)
[2017-04-10] MEDS ORDERED: ULT50X PO (08:59)
[2017-04-10] MEDS ORDERED: ACET-24 PO (08:59)
[2017-04-10] MEDS ORDERED: CLC100 PO (08:59)
[2017-04-10] MEDS ORDERED: FAMOTIDINE 20 MG TAB PO SCH (09:00)
[2017-04-10] MEDS ORDERED: BUMETANIDE 1 MG TAB PO SCH (09:00)
[2017-04-10] MEDS ORDERED: LISINOPRIL 10 MG TAB PO SCH (09:00)
[2017-04-10] MEDS ORDERED: ENOXAPARIN 40 MG/0.4 ML SYR SQ SCH (09:00)
[2017-04-10] MEDS ORDERED: POTASSIUM CHLORIDE 10 MEQ TABCR PO SCH (09:00)
[2017-04-10] MEDS ORDERED: CYANOCOBALAMIN 100 MCG TAB (VIT B-12) PO SCH (09:00)
[2017-04-10] MEDS ORDERED: CHOLECALCIFEROL 1000 INTER.UNIT TAB PO SCH (09:00)
[2017-04-10] MEDS ORDERED: MULTIVITAMIN TAB PO SCH (09:00)
[2017-04-10] MEDS ORDERED: NURSING VERBAL MED ORDER ONE (09:15)
--- NOTE | 2017-04-10 09:23 | Discharge Instructions ---
Discharge Instructions Date of Service Apr 10, 2017. Admission Reason for Admission: Trimalleolar Fracture Of Ankle, Closed Discharge Discharge Diagnosis / Problem: Left ankle trimalleolar fracture Discharge Goals Goal(s): Decrease discomfort, Improve function, Increase independence Activity Recommendations Activity Limitations: per Instructions/Follow-up section Weightbearing Status: Left non-weightbearing . Instructions / Follow-Up Instructions / Follow-Up DIET: * Resume previous diet. MEDICATIONS: * Please take your prescriptions as instructed at your pre-op appointment and/ or see medication discharge instructions listed above. * If concerns develop, call your physician's office at . SPECIAL CARE INSTRUCTIONS: * Ice to left ankle as needed for pain and swelling * Elevate left ankle above her heart to relieve pain and swelling. * Keep dressing clean, dry, intact. Keep splint on at all times. Cover while bathing. * Okay to wiggle toes frequently as needed for comfort. Allowed for range of motion of left knee as tolerated * Use walker or knee scooter to assist with ambulation. * DO not place any weight on your left ankle/foot. * Your surgical extremity may be discolored due to prepping agents used on the skin. A bluish-green tint is a normal variant and should not cause alarm. Call your doctor at [phone] if: * Temperature above 101 degrees * Pain not relieved by pain medicine ordered * There is increased drainage or redness from any incision * You have any unanswered questions, problems or concerns. FOLLOW UP VISIT: * If not already scheduled, please call the office at to schedule a follow-up appointment. * You have a follow up appointment at [facility] on 04/16/2017 at 11 AM. * Please call [phone] with any questions or concerns. Current Hospital Diet Patient's current hospital diet: Regular Diet Discharge Diet Recommended Diet: Regular Diet Procedures Procedures Performed: Left Ankle Open Reduction Internal Fixation Pending Studies Studies pending at discharge: no Medical Emergencies . Who to Call and When: Medical Emergencies: If at any time you feel your situation is an emergency, please call 911 immediately. . Non-Emergent Contact Non-Emergency issues call your: Surgeon Call Non-Emergent contact if: temperature is above 101, your pain is not controlled, your pain is worsening, wound has increased drainage, wound has increased redness, wound has increased pain, you have any medication questions . "Provider Documentation" section prepared by Lani Zapata. . VTE Core Measure Inpt VTE Proph given/why not?: Enoxaparin (Lovenox)SQ (40 mg subcutaneous daily 14 days), Kai Rodriguez [place] Drug Monitoring Program Search Results: patient reviewed within database, no issues identified
[2017-04-10 10:22] VITALS: BP 132/75; PULSE 78; TEMP 37.1; O2SAT 93
--- NOTE | 2017-04-10 11:07 | Discharge Summary ---
Discharge Summary Date of Service Apr 10, 2017. Discharge Summary Admission Date: Apr 09, 2017 at 14:20 Discharge Date: Apr 10, 2017 Discharge Disposition: Home Principal Diagnosis: Trimalleolar left ankle fracture Procedures: ORIF left ankle fracture on 04/09/[address] Hurt Consultations: Hospitalist consult for postoperative medical management Pending Studies/Follow-Up: You have a follow-up appointment scheduled at [facility] on at 11:00 a.m. Medication Reconciliation New Medications: Acetaminophen (Sb Non-Aspirin Extra Stre) 500 Mg Tab 1000 MG PO Q8H, #30 TAB 0 Refills Docusate Sodium (Docusate Sodium) 100 Mg Cap 100 MG PO BID for 30 Days, #60 CAP over the counter, take while on pain medication Enoxaparin (Enoxaparin Sodium) 40 Mg/0.4 Ml Inj 40 MG SQ Q24H for 14 Days, #14 SYR 1 Refill Multiple Vitamin (Daily-Erin) 1 Tab Tab 1 TAB PO QAM for 30 Days, #30 TAB 0 Refills Oxycodone HCl (Oxycodone HCl) 5 Mg Tab 5-10 MG PO Q4H PRN for Pain, #30 TAB 0 Refills Tramadol HCl (Tramadol HCl) 50 Mg Tab 50-100 MG PO Q4H PRN for Pain, #30 TAB 0 Refills Continued Medications: Aspirin (Aspirin Ec) 81 Mg Tab 81 MG PO HS Atorvastatin (Lipitor) 40 Mg Tab 40 MG PO HS, TAB Bumetanide (Bumetanide) 1 Mg Tab 2 MG PO QAM Carvedilol (Coreg) 25 Mg Tab 25 MG PO BID, TAB Cholecalciferol (Vitamin D3) 2,000 Unit Tab 5000 UNITS PO QAM for 90 Days, TAB 3 Refills Cyanocobalamin (Vitamin B12 100 Mcg) 100 Mcg Tab 200 MCG PO QAM, TAB Famotidine (Pepcid) 20 Mg Tab 20 MG PO QAM, TAB Hydrocodone/Acetaminophen 5MG/325MG ([place] 5MG/325MG) Tab 1 TABLET PO Q4H PRN for N, TAB PRN PAIN Lisinopril (Zestril) 20 Mg Tab 10 MG PO QAM, TAB Potassium Chloride (Micro-K Ext Rel) 10 Meq Capcr 10 MEQ PO QAM, CAP [Allopurinol] () 1 TAB PO QAM Discontinued Medications: Hydroxychloroquine Sulfate (Plaquenil) 200 Mg Tab 200 MG PO BID, TAB Methotrexate (Methotrexate) 2.5 Mg Tab 12.5 MG PO FRIDAYS, TAB Sulfasalazine (Azulfidine) 500 Mg Tab 1000 MG PO BID, TAB [Orencia] () 1 DOSE INJ QMONTHLY LAST DOSE END JAN 2017 Admission Information HPI (per Admitting provider): Patient is a pleasant 66-year-old male who status post a fall out of his tree stand approximately 15 feet. This happened on March 26, 2017. He was unable to ambulate due to pain in his left ankle. It is not using assistive group. His back has also been a little bit sore but states he feels this because he is using the crutches. He denies any other injuries. He was transported out of the [place] and went to a local emergency room where his ankle was reduced. He was then sent to [facility] where further evaluation was done and surgical intervention was recommended. He was hoping to have surgery closer to home and his family physician referred him to see Dr. Hurt. He was seen and evaluated by Dr. Hurt was found to have a left ankle trimalleolar unstable closed fracture. An open reduction internal fixation of his left ankle was recommended. He agreed to proceed. He does have some medial fracture blisters that have delayed surgery slightly. He is scheduled for an open reduction internal fixation of his left ankle fracture with Dr. Hurt on April 09, 2017 at the [facility]. Physical Exam (per Admitting): General Appearance: WD/WN, no apparent distress Head: normocephalic, atraumatic Eyes: normal inspection, PERRL, EOMI ENT: normal ENT inspection, hearing grossly normal, TMs normal, pharynx normal Neck: supple, no adenopathy, thyroid normal, no carotid bruits, trachea midline Respiratory/Chest: chest non-tender, lungs clear, normal breath sounds, no respiratory distress, no accessory muscle use Cardiovascular: regular rate, rhythm, no murmur, normal peripheral pulses Abdomen/GI: normal bowel sounds, non tender, soft Extremities/Musculoskelatal: no calf tenderness, normal capillary refill, + pertinent finding (Exam of his left lower extremity: Fracture blisters along the medial malleolus with erythema and ecchymosis. Edema of his left foot and ankle. Ecchymosis into his left heel and arch mainly on the medial side. Not ecchymosis laterally. Point tenderness at palpation of the medial malleolus and the lateral malleolus. Effusion of his left ankle joint. Nontender over the anterior tibia with palpation. Unstable ankle joint with crepitation with any type of movement. Tolerates full range of motion of his left knee without effusion. Full bilateral hip range of motion without discomfort. No evidence of trauma on his right lower extremity. No evidence of trauma bilateral upper extremities. Nontender of his sternum or rib cage. Nontender with palpation of his lumbar and thoracic and cervical spine. Tolerates gentle range of motion Of his spinewith some achiness with movement.) Neurologic/Psych: no motor/sensory deficits, alert, normal mood/affect, oriented x 3 Skin: normal color, warm/dry, no rash Lymphatic: no adenopathy Hospital Course Patient was admitted after undergoing an open reduction internal fixation of his left trimalleolar ankle fracture with Dr. Hurt on 04/09/2017. He was admitted to the [facility]. He underwent surgery on his left ankle with general anesthesia. He tolerated the procedure well without any intraoperative complications. He was given IV Ancef for surgical prophylaxis prior to surgery as well as 3 g of IV Ancef for surgical prophylaxis. He had no immediate reactions from his antibiotics after given. He was placed in observation overnight for pain management after surgery. On the evening of his surgery he developed some right sided upper lip swelling and a rash on the anterior aspect of his chest. Medical consult was placed for postoperative medical management and they evaluated him for the swelling. He was given 50 mg of IV Benadryl which helped with the swelling. He denied at that time any shortness of breath, difficulty swallowing or talking or eating, active 9 any itchiness of the rash denied any tongue swelling. His regular medications, IV antibiotics were continued. He developed no further swelling of his face and the rash resolved. Etiology of the facial swelling and rash is unknown. On postoperative day 1 he was evaluated in his swelling and rash is completely resolved. He states that he had pain throughout the night in which she required IV morphine and pain medications for his left ankle. His pain was then controlled on by mouth pain medication. He had ice on his left ankle and was elevated appropriately. He had some tightness of the splint. This splint was kept on and the dressings were loosened and his discomfort was immediately relieved. He was instructed to be nonweightbearing of his left lower extremity at all times. He is to use a walker or knee scooter to assist with ambulation. Physical therapy was ordered and started on postoperative day 1. He did well out of bed. He tolerated a regular diet. His rheumatology medications were held for wound healing. His other home medications were continued during his hospitalization. His start on Lovenox 40 mg subcutaneous daily on postoperative day 1 for DVT prophylaxis. AV foot pumps and STEPHANIE stockings were also used during his stay for DVT prophylaxis. He was deemed safe for discharge by physical therapy. He was discharged to his home with his on 04/10/2017. He will follow up in our office as scheduled next Saturday for dressing change. Scripts for pain medication were provided. Also prescription for a shower chair was provided. Discharge instructions were reviewed and provided. Total time spent on discharge = This includes examination of the patient, discharge planning, medication reconciliation, and communication with other providers. Discharge Instructions Discharge Instructions Date of Service Apr 10, 2017. Admission Reason for Admission: Trimalleolar Fracture Of Ankle, Closed Discharge Discharge Diagnosis / Problem: Left ankle trimalleolar fracture Discharge Goals Goal(s): Decrease discomfort, Improve function, Increase independence Activity Recommendations Activity Limitations: per Instructions/Follow-up section Weightbearing Status: Left non-weightbearing . Instructions / Follow-Up Instructions / Follow-Up DIET: * Resume previous diet. MEDICATIONS: * Please take your prescriptions as instructed at your pre-op appointment and/ or see medication discharge instructions listed above. * If concerns develop, call your physician's office at . SPECIAL CARE INSTRUCTIONS: * Ice to left ankle as needed for pain and swelling * Elevate left ankle above her heart to relieve pain and swelling. * Keep dressing clean, dry, intact. Keep splint on at all times. Cover while bathing. * Okay to wiggle toes frequently as needed for comfort. Allowed for range of motion of left knee as tolerated * Use walker or knee scooter to assist with ambulation. * DO not place any weight on your left ankle/foot. * Your surgical extremity may be discolored due to prepping agents used on the skin. A bluish-green tint is a normal variant and should not cause alarm. Call your doctor at [phone] if: * Temperature above 101 degrees * Pain not relieved by pain medicine ordered * There is increased drainage or redness from any incision * You have any unanswered questions, problems or concerns. FOLLOW UP VISIT: * If not already scheduled, please call the office at to schedule a follow-up appointment. * You have a follow up appointment at [facility] on 04/16/2017 at 11 AM. * Please call [phone] with any questions or concerns. Current Hospital Diet Patient's current hospital diet: Regular Diet Discharge Diet Recommended Diet: Regular Diet Procedures Procedures Performed: Left Ankle Open Reduction Internal Fixation Pending Studies Studies pending at discharge: no Medical Emergencies . Who to Call and When: Medical Emergencies: If at any time you feel your situation is an emergency, please call 911 immediately. . Non-Emergent Contact Non-Emergency issues call your: Surgeon Call Non-Emergent contact if: temperature is above 101, your pain is not controlled, your pain is worsening, wound has increased drainage, wound has increased redness, wound has increased pain, you have any medication questions . "Provider Documentation" section prepared by Lani Zapata. . VTE Core Measure Inpt VTE Proph given/why not?: Enoxaparin (Lovenox)SQ (40 mg subcutaneous daily 14 days), T.E.Jericho Rodriguez [place] Drug Monitoring Program Search Results: patient reviewed within database, no issues identified
--- NOTE | 2017-04-10 12:09 | NUR ---
Case Management: Attempted to meet with pt for discharge planning. No bed in the room and it looks like pt has already discharged.
--- NOTE | 2017-04-10 13:01 | Anesthesiology Progress Note ---
Anesthesia Post Op Note Date & Time Apr 10, 2017 at 12:59 Vital Signs Vital Signs Past 12 Hours Date Time Temp Pulse Resp B/P (MAP) Pulse Ox O2 Delivery O2 Flow Rate FiO2 04/10/17 10:22 37.1 78 14 93 Room Air 04/10/17 08:00 93 Room Air 04/10/17 07:54 37.1 78 14 132/75 (94) 93 Room Air 04/10/17 07:30 Room Air 04/10/17 03:29 37.2 77 16 138/77 (97) 96 Room Air Notes Mental Status: alert / awake / arousable, participated in evaluation Pt Amnestic to Procedure: Yes Nausea / Vomiting: adequately controlled Pain: adequately controlled Airway Patency, RR, SpO2: stable & adequate BP & HR: stable & adequate Hydration State: stable & adequate Neuraxial Anesthesia: sensory block resolved Anesthetic Complications: no major complications apparent
== END 2017-04-10 10:56 | disposition home or self-care (01) ==
LOC: C.ACU 06:41 → C.3E 14:20 → ENRESERV 14:47
PROVIDERS: ADMIT Physical Medicine & Rehabilitation Sports Medicine; ATTEND Physical Medicine & Rehabilitation Sports Medicine
DX: S82.852A Displaced trimalleolar fracture of left lower leg, initial encounter for closed fracture (principal); S82.392A Other fracture of lower end of left tibia, initial encounter for closed fracture; W14.XXXA Fall from tree, initial encounter; E11.9 Type 2 diabetes mellitus without complications; G47.33 Obstructive sleep apnea (adult) (pediatric); I25.10 Atherosclerotic heart disease of native coronary artery without angina pectoris; I10 Essential (primary) hypertension; E05.90 Thyrotoxicosis, unspecified without thyrotoxic crisis or storm; G47.30 Sleep apnea, unspecified; K21.9 Gastro-esophageal reflux disease without esophagitis; M19.90 Unspecified osteoarthritis, unspecified site; Z86.73 Personal history of transient ischemic attack (TIA), and cerebral infarction without residual deficits; Z87.891 Personal history of nicotine dependence; Z98.890 Other specified postprocedural states; Z79.82 Long term (current) use of aspirin; Z79.899 Other long term (current) drug therapy; E66.9 Obesity, unspecified; Z68.38 Body mass index [BMI] 38.0-38.9, adult

== ENCOUNTER → 2017-04-16 | Outpatient (CLI) | payer OTHER ==
[~2017-04-16] MED LIST changes: +ACET-24 PO; -BUPIVACAINE 0.25% 30 ML VIAL ONE; -CEFAZOLIN SOD 2000MG/15 ML IV PUSH IV SCH; +CLC100 PO; -HYDR200T5 PO; -LACTATED RINGER'S 1000ML 1,000 ML IV SCH; +LVNIS40 SQ; -METH2.5T PO; +MULT-890 PO; -ORENCIA INJ; -ROPIVACAINE 0.5% 5 MG/ML 30 ML VIAL ONE; +RXC5 PO; -SODIUM CHLORIDE 0.9% 1000ML 1,000 ML IV SCH; -SULF500T36 PO; +ULT50X PO; -VANCOMYCIN IV 2,000 MG in SODIUM CHLORIDE 0.9% 500ML 500 ML IV SCH
[2017-04-16 14:38] LABS: HEMATOCRIT 38.4 % (42-52); MEAN CELL VOLUME 96.5 fL (80-100); MEAN CORPUSCULAR HEMOGLOBIN 32.2 pg (25-34); MEAN CORPUSCULAR HGB CONC 33.3 g/dl (32-36); MEAN PLATELET VOLUME 10.4 fL (7.4-10.4); PLATELET COUNT 309 K/uL (130-400); RED BLOOD COUNT 3.98 M/uL (4.7-6.1); WHITE BLOOD COUNT 9.12 K/uL (4.8-10.8)
== END | disposition home or self-care (01) ==
LOC: C.LAB1850 12:34
PROVIDERS: ATTEND Physician Assistant
DX: S82.852D Displaced trimalleolar fracture of left lower leg, subsequent encounter for closed fracture with routine healing (principal); X58.XXXD Exposure to other specified factors, subsequent encounter

== ENCOUNTER → 2017-04-24 | Outpatient (CLI) | payer OTHER | END | disposition home or self-care (01) | LOC: C.RDSM 13:18 | PROVIDERS: ATTEND Physical Medicine & Rehabilitation Sports Medicine | DX: S82.852D Displaced trimalleolar fracture of left lower leg, subsequent encounter for closed fracture with routine healing (principal); X58.XXXD Exposure to other specified factors, subsequent encounter; M06.9 Rheumatoid arthritis, unspecified ==

== ENCOUNTER → 2017-05-22 | Outpatient (CLI) | payer OTHER | END | disposition home or self-care (01) | LOC: C.RDSM 19:10 | PROVIDERS: ATTEND Physical Medicine & Rehabilitation Sports Medicine | DX: S82.852A Displaced trimalleolar fracture of left lower leg, initial encounter for closed fracture (principal); X58.XXXA Exposure to other specified factors, initial encounter ==

== ENCOUNTER → 2017-06-18 | Outpatient (CLI) | payer OTHER | END | disposition home or self-care (01) | LOC: C.RDSM 08:00 | PROVIDERS: ATTEND Physical Medicine & Rehabilitation Sports Medicine | DX: S82.852D Displaced trimalleolar fracture of left lower leg, subsequent encounter for closed fracture with routine healing (principal); X58.XXXD Exposure to other specified factors, subsequent encounter ==

== ENCOUNTER → 2017-07-19 | Outpatient (CLI) | payer OTHER | END | disposition home or self-care (01) | LOC: C.RDSM 12:49 | PROVIDERS: ATTEND Physical Medicine & Rehabilitation Sports Medicine | DX: S82.852D Displaced trimalleolar fracture of left lower leg, subsequent encounter for closed fracture with routine healing (principal); X58.XXXD Exposure to other specified factors, subsequent encounter ==

== ENCOUNTER → 2017-08-20 | Outpatient (CLI) | payer OTHER | END | disposition home or self-care (01) | LOC: C.RDSM 17:01 | PROVIDERS: ATTEND Physical Medicine & Rehabilitation Sports Medicine | DX: S82.852D Displaced trimalleolar fracture of left lower leg, subsequent encounter for closed fracture with routine healing (principal); X58.XXXD Exposure to other specified factors, subsequent encounter ==